=== PATIENT | female | born 1965 | race Caucasian/White ===

== ENCOUNTER 2020-07-08 19:26 | Emergency (ER) | payer MEDICARE, OTHER ==
[~2020-07-08 19:26] MED LIST: IBUPROFEN800 MG PO; QUETIAPINE FUM300 MG PO; XANAX0.5 MG PO; ZOFRAN 4 MG TAB4 MG PO; ZOFRAN4 MG PO
[2020-07-08 20:04] LABS: HEMOGLOBIN 14.5 gm/dl (12.3-15.3); RED BLOOD COUNT 4.16 M/UL (4.00-5.10); WHITE BLOOD COUNT 10.2 K/UL (4.5-11.0)
[2020-07-08 21:31] LABS: BUN/CREATININE RATIO 16 (0-10)
[2020-07-08] MEDS ORDERED: PHENERGAN 25 MG25 M1 PO (23:40)
== END 2020-07-09 00:40 | disposition home or self-care (01) ==
LOC: ER1 19:26
PROVIDERS: Emergency Medicine
DX: N39.0 Urinary tract infection, site not specified (principal); F17.200 Nicotine dependence, unspecified, uncomplicated; Z88.8 Allergy status to other drugs, medicaments and biological substances
CPT/HCPCS: 71045; 80053; 81001; 82550; 82553; 83605; 83690; 83874; 84484; 85025; 93005; 96365; 96367; 96375; 99285; J0696; J2270; J2405; J2550; Q9967